=== PATIENT | female | born 1970 | race Caucasian/White ===

== ENCOUNTER 2024-06-01 18:56 | Inpatient (IN) | payer OTHER ==
[~2024-06-01] VITALS: Ht 152.4 cm; Wt 65.0 kg
[2024-06-01] MEDS ORDERED: TRAZ-252 PO (19:12)
[2024-06-01] MEDS ORDERED: PARO10TA89 PO (19:12)
[2024-06-01 19:36] LABS: BASOPHILS % (AUTO) 1.8 % (0.0-2.0); EOSINOPHILS % (AUTO) 2.1 % (1.0-6.0); LYMPHOCYTES # (AUTO) 2.2 K/uL (1.0-4.8); LYMPHOCYTES % (AUTO) 26.8 % (22.0-44.0); MEAN CORPUSCULAR HEMOGLOBIN 29.1 pg (26.0-34.0); MEAN CORPUSCULAR HGB CONC 32.6 G/dL (31.0-37.0); MEAN CORPUSCULAR VOLUME 89 fL (80-100); MONOCYTES # (AUTO) 0.4 K/uL (0.1-1.0); MONOCYTES % (AUTO) 4.5 % (2.0-9.0); NEUTROPHILS # (AUTO) 5.2 K/uL (1.8-7.7); NEUTROPHILS % (AUTO) 64.8 % (40.0-70.0); PLATELET COUNT (AUTO) 390 K/uL (150-450); RED BLOOD CELL COUNT(AUTO) 4.81 MIL/uL (4.00-5.20); RED CELL DISTRIBUTION WIDTH 13.7 % (11.5-14.5); WHITE BLOOD COUNT (AUTO) 8.1 K/uL (4.5-11.0)
[2024-06-01 19:44] LABS: ANION GAP 8 mmol/L (8-16); CALCIUM, TOTAL 9.2 mg/dL (8.8-10.5); CARBON DIOXIDE 31 mmol/L (22-29); CHLORIDE 105 mmol/L (98-107); CREATININE 0.65 mg/dL (0.60-1.30); GLOMERULAR FILTR. RATE CALC > 60 mL/min (>60); GLUCOSE,RANDOM 103 mg/dL (70-110); POTASSIUM 3.8 mmol/L (3.5-5.1); SODIUM SERUM 144 mmol/L (136-145); UREA NITROGEN, BLOOD 15 mg/dL (7-18)
[2024-06-01 20:05] LABS: ALCOHOL, BLOOD (SERUM) < 3 mg/dL (0-10)
[2024-06-01 20:31] LABS: COVID AG,FIA SOURCE NASAL SWAB
[2024-06-01 20:52] LABS: SARS-COV2 (COVID) ANTIGEN,FIA Negative (Negative)
[2024-06-01] MEDS ORDERED: ACETAMINOPHEN 325 MG TABLET PO PRN (22:45)
[2024-06-01] MEDS ORDERED: ONDANSETRON HCL 4 MG/2 ML VIAL IVP PRN (22:45)
[2024-06-01 23:14] LABS: THYROID STIMULATING HORMONE 4.34 uIU/mL (0.36-3.74)
[2024-06-01 23:56] VITALS: BP 132/72; PULSE 68; RESP 17; TEMP 98; O2SAT 96
[2024-06-02] MEDS: HEPARIN SODIUM,PORCINE 5,000 UNITS/ML VIAL SQ SCH
[2024-06-02 06:05] LABS: APPEARANCE,URINE HAZY (CLEAR); BILIRUBIN,URINE NEGATIVE (NEGATIVE); COLOR,URINE YELLOW (YELLOW); GLUCOSE, URINE (UA) NEGATIVE (NEGATIVE); KETONES,URINE NEGATIVE (NEGATIVE); LEUKOCYTE ESTERASE ,URINE NEGATIVE (NEGATIVE); NITRATE,URINE NEGATIVE (NEGATIVE); OCCULT BLOOD,URINE NEGATIVE (NEGATIVE); PH,URINE 6.5 (5.0-8.0); PH,URINE DRUG SCREEN 6.5 (5.0-8.0); PROTEIN,URINE NEGATIVE (NEGATIVE); UROBILINOGEN,URINE <=1.0 mg/dL (<=1.0)
[2024-06-02 06:11] LABS: ALCOHOL, URINE DRUG SCREEN NEGATIVE (NEGATIVE); AMPHET/METH SCREEN,URINE POSITIVE (NEGATIVE); BARBITURATE SCREEN, URINE NEGATIVE (NEGATIVE); BENZODIAZEPINES SCREEN,URINE NEGATIVE (NEGATIVE); CANNABINOID SCREEN,URINE NEGATIVE (NEGATIVE); COCAINE SCREEN,URINE NEGATIVE (NEGATIVE); METHADONE SCREEN, URINE NEGATIVE (NEGATIVE); OPIATE SCREEN,URINE NEGATIVE (NEGATIVE); PHENCYCLIDINE SCREEN,URINE NEGATIVE (NEGATIVE)
[2024-06-02 06:21] VITALS: BP 97/65; PULSE 79; RESP 18; TEMP 98.1; O2SAT 95
[2024-06-02 08:23] LABS: BASOPHILS % (AUTO) 1.2 % (0.0-2.0); EOSINOPHILS % (AUTO) 3.3 % (1.0-6.0); HEMATOCRIT 38.5 % (36-46); HEMOGLOBIN 12.8 g/dL (12.0-16.0); LYMPHOCYTES # (AUTO) 1.9 K/uL (1.0-4.8); MEAN CORPUSCULAR HEMOGLOBIN 29.8 pg (26.0-34.0); MEAN CORPUSCULAR HGB CONC 33.2 G/dL (31.0-37.0); MEAN CORPUSCULAR VOLUME 90 fL (80-100); MONOCYTES # (AUTO) 0.4 K/uL (0.1-1.0); MONOCYTES % (AUTO) 6.3 % (2.0-9.0); NEUTROPHILS # (AUTO) 4.3 K/uL (1.8-7.7); NEUTROPHILS % (AUTO) 61.2 % (40.0-70.0); PLATELET COUNT (AUTO) 368 K/uL (150-450); RED CELL DISTRIBUTION WIDTH 13.7 % (11.5-14.5)
[2024-06-02 08:31] LABS: ANION GAP 8 mmol/L (8-16); CALCIUM, TOTAL 8.7 mg/dL (8.8-10.5); CARBON DIOXIDE 29 mmol/L (22-29); CHLORIDE 105 mmol/L (98-107); CREATININE 0.57 mg/dL (0.60-1.30); GLOMERULAR FILTR. RATE CALC > 60 mL/min (>60); GLUCOSE,RANDOM 92 mg/dL (70-110); POTASSIUM 3.7 mmol/L (3.5-5.1); SODIUM SERUM 142 mmol/L (136-145); UREA NITROGEN, BLOOD 14 mg/dL (7-18)
[2024-06-02 08:47] VITALS: BP 102/57; PULSE 74; RESP 20; TEMP 97.7; O2SAT 96
[2024-06-02] MEDS: PARoxetine HCL 20 MG TABLET PO SCH (14:18)
[2024-06-02 20:16] VITALS: BP 133/73; PULSE 78; RESP 18; TEMP 98.6; O2SAT 100
[2024-06-03 04:10] VITALS: BP 109/70; PULSE 71; RESP 19; TEMP 98.6; O2SAT 94
[2024-06-03] MEDS: TraZODone HCL 150 MG TABLET PO PRN (05:07)
[2024-06-03 15:37] VITALS: BP 102/55; PULSE 82; RESP 18; TEMP 98.8; O2SAT 97
[2024-06-03 19:56] VITALS: BP 125/81; PULSE 73; RESP 18; TEMP 98.4; O2SAT 94
[2024-06-04 05:13] VITALS: BP 104/66; PULSE 62; RESP 18; TEMP 97.6; O2SAT 96
[2024-06-04 09:08] VITALS: BP 122/67; PULSE 64; RESP 18; TEMP 98.8; O2SAT 98
== END 2024-06-04 18:51 | DRG 885 ==
LOC: EMS 18:56 → EDH 22:37 → 6S 23:10
PROVIDERS: ADMIT Internal Medicine; ATTEND Internal Medicine
PROC: GZ52ZZZ Individual Psychotherapy, Cognitive (ICD-10-PCS; principal; 2024-06-03)
DX: F33.2 Major depressive disorder, recurrent severe without psychotic features (principal); R45.851 Suicidal ideations; F15.10 Other stimulant abuse, uncomplicated; Z20.822 Contact with and (suspected) exposure to COVID-19; F17.210 Nicotine dependence, cigarettes, uncomplicated; J44.9 Chronic obstructive pulmonary disease, unspecified; Z71.6 Tobacco abuse counseling; Z79.899 Other long term (current) drug therapy; Z88.0 Allergy status to penicillin; Z88.1 Allergy status to other antibiotic agents; Z88.2 Allergy status to sulfonamides; Z88.5 Allergy status to narcotic agent; Z88.6 Allergy status to analgesic agent; Z91.51 Personal history of suicidal behavior
CPT/HCPCS: 80048; 80307; 81003; 83735; 84443; 85025; 99285; G0480; J1644